=== PATIENT | female | born 1990 | race African-American/Black ===

== ENCOUNTER 2016-10-01 12:30 | Emergency (ER) | payer SELFPAY ==
[~2016-10-01] VITALS: Ht 170.2 cm; Wt 104.3 kg
--- NOTE | 2016-10-01 12:30 | NUR ---
PT BIB [facility]OM[facility] SINCE 5[facility]. PT AWAKE BUT SLUGGISH SPEECH BUT ABLE TO ENUNCIATE. DENIES ANY PAIN. PLACED ON MONITOR. VSS. FAUSTINA VERDIN ORDER
[2016-10-01] MEDS ORDERED: IV SET PRIMARY PUMP SET 1 EA INFUS.SET MC ONE (12:57)
[2016-10-01] MEDS ORDERED: ONDANSETRON HCL/PF 4 MG/2 ML VIAL ONE (12:57)
[2016-10-01] MEDS ORDERED: IV NS 0.9% 1,000 ML ONE (12:57)
[2016-10-01] MEDS ORDERED: ONDANSETRON HCL/PF 4 MG/2 ML VIAL IVP ONE (13:00)
[2016-10-01] MEDS ORDERED: IV NS 0.9% 1,000 ML BAG IV ONE (13:00)
--- NOTE | 2016-10-01 13:00 | NUR ---
LAC#20 IV ACCESS. BLOOD SAMPLE COLLECTED SENT TO LAB
[2016-10-01 13:09] LABS: BASOPHILS % (AUTO) 0.5 % (0.0-2.0); EOSINOPHILS # (AUTO) 0.2 /CMM (0.0-0.7); EOSINOPHILS % (AUTO) 1.8 % (0.0-6.0); HEMATOCRIT 36 % (33-45); HEMOGLOBIN 12.2 g/dL (11.5-14.8); LYMPHOCYTES # (AUTO) 2.4 /CMM (0.8-4.8); LYMPHOCYTES % (AUTO) 28.7 % (20.0-44.0); MEAN CORPUSCULAR HEMOGLOBIN 29 PG (26.0-33.0); MEAN CORPUSCULAR HGB CONC 34 g/dl (31.0-36.0); MEAN CORPUSCULAR VOLUME 84 fL (82-100); MONOCYTES # (AUTO) 0.4 /CMM (0.1-1.30); MONOCYTES % (AUTO) 4.7 % (2.0-12.0); NEUTROPHILS # (AUTO) 5.4 /CMM (1.8-8.9); NEUTROPHILS % (AUTO) 64.3 % (43.0-81.0); PLATELET COUNT (AUTO) 255 /CMM (150-450); RED BLOOD CELL COUNT(AUTO) 4.28 MIL/uL (4.0-5.2); WHITE BLOOD COUNT (AUTO) 8.4 K/uL (4.3-11.0)
[2016-10-01 13:20] LABS: CALCIUM, SERUM 8.4 mg/dL (8.5-10.1); CREATININE 0.9 mg/dL (0.6-1.3); POTASSIUM 3.8 mmol/L (3.5-5.1)
--- NOTE | 2016-10-01 13:35 | NUR ---
URINE SMAPLE COLLECTED SENT TO LAB
[2016-10-01 13:36] LABS: APPEARANCE,URINE Clear (CLEAR); BILIRUBIN,URINE Negative (NEGATIVE); BLOOD, URINE Negative Ery/uL (NEGATIVE); COLOR,URINE Yellow (YELLOW); KETONES,URINE Negative (NEGATIVE); LEUKOCYTE ESTERASE ,URINE Negative (NEGATIVE); NITRITE, URINE Negative (NEGATIVE); PROTEIN,URINE Trace mg/dl (NEGATIVE); UGLUCOSE Negative (NEGATIVE)
[2016-10-01 13:39] LABS: PH,URINE >9.0 (5.0-8.0)
[2016-10-01 13:47] LABS: ADD URINE CULTURE NO; BACTERIA,URINE None seen /HPF (None Seen); RBC,URINE 0-2 /HPF (0-2); SQUAMOUS EPITHELIAL CELL,UR Rare /HPF (None Seen); WBC,URINE 0-2 /HPF (0-3)
[2016-10-01 13:48] LABS: PREGNANCY TEST URINE QUAL NEGATIVE (NEGATIVE)
[2016-10-01 15:14] VITALS: BP 99/65
--- NOTE | 2016-10-01 16:28 | NUR ---
ANNMARIE received a call from JONAH Ross in ED requesting to assess pt. regarding discharge plan since pt. is discharged. ANNMARIE met with pt. in ED waiting area. Pt. informed SW she lives with her boyfriend. ANNMARIE left a message for pt's boyfriend Puneet and requested a call back. ANNMARIE received a call from Puneet who informed SW to discharge pt. to [address] [place] [address] [place] [id number]. Puneet has no transportation available to berry picker pt. Pt. to be discharged home via taxi.
== END 2016-10-01 15:18 | disposition home or self-care (01) ==
LOC: ER 12:35
DX: R55 Syncope and collapse (principal); F20.9 Schizophrenia, unspecified; F32.9 Major depressive disorder, single episode, unspecified
CPT/HCPCS: 36415; 80048; 81001; 84703; 85025; 93005; 96361; 96374; 99285; A4606; J2405; J7030; Z7610; 81000-TC